=== PATIENT | male | born 1960 | race Caucasian/White ===

== ENCOUNTER 2023-11-27 09:49 | Observation (INO) ==
--- NOTE | 2023-10-16 08:52 | PAT Medication Instructions ---
Medication Instructions Date of Service October 16, 2023 Home Medications amlodipine 10 mg tablet 10 mg PO QPM metoprolol succinate 25 mg tablet,extended release 24 hr 25 mg PO QAM Take morning of surgery With a small sip of water, OTHERWISE NOTHING TO EAT OR DRINK AFTER MIDNIGHT: metoprolol succinate 25 mg tablet,extended release 24 hr 25 mg PO QAM Take evening before surgery amlodipine 10 mg tablet 10 mg PO QPM Other Notes If you have any questions please call us at [phone] or [phone] or [phone] or [phone]
--- NOTE | 2023-11-02 09:03 | Anesthesiology Consultation ---
Date of Service November 02, 2023 Assessment & Plan (1) Encounter for pre-operative examination: Chart Review Chart Review: Acceptable Risk for Surgery and Patient seen in Pre Admission Testing Pt currently scheduled as 23 hours observation. If surgeon decides to change patient to Same Day Joint, patient would be acceptable risk for TKA, pending patient is motivated, has good support and surgeon's office completes [facility] Program preop requirements. Per PAT appt on 11/02/23, no recent illness/disease exposures, illness related symptoms, or recent illness/disease positive tests. Will leave to surgeon's discretion if preop Covid testing needed Teaching & Discussion Pre-Anesthesia Teaching/Discussion Notes: Instructed NPO after midnight before surgery,except medications with 15 cc of water. Medication instructions provided according to the PAT guidelines. History Surgery Operation Date: 11/27/23 07:00 Proposed Procedures p Right Total Knee Arthroplasty - Lenin Moreno MD Height/Weight Height: 6 ft Weight: 104.8 kg Allergies Allergy/AdvReac Type Severity Reaction Status Date / Time No Known Allergies Allergy NONE Verified 10/15/23 14:04 Medications Home Medications Medication Instructions Recorded Confirmed Last Taken amlodipine 10 mg tablet 10 mg PO QPM 10/15/23 10/15/23 Unknown metoprolol succinate 25 mg 25 mg PO QAM 10/15/23 10/15/23 Unknown tablet,extended release 24 hr Past Medical History Medical History (Updated 11/02/23 @ 15:09 by Hina Ta PA-C) Elevated hemoglobin A1c Hx borderline blood sugar levels 2016 - monitored / dietary changes & weight loss. No problems with over last 5 yrs. Hgb A1C 5.2 on 11/02/23 High cholesterol History of anxiety History of COVID-19 (04/2023) Several times- most recent 04/2023 Mild residual rhinitis (minimal) HTN (hypertension) PVC's (premature ventricular contractions) Right knee DJD Exercise / Class Metabolic Activity II 4-5 Yardwork/Stairs/Walk up hill (one flight of stairs- no chest pain or SOB ) Past Surgical History Surgical History History of colonoscopy History of left knee surgery History of shoulder surgery right, biceps tendon. [place] teeth removed hx Past Anesthesia History No Hx of Anesthesia Complications and No Family Hx of Anesthesia Complications History of PONV No Hx of PONV and No Hx of Motion Sickness Social History Smoking Status: Current some day smoker Smoking cigarettes per day: occ cigar Do You Dip or Chew Tobacco: Yes (1 can per week/advised npo) Hx Alcohol Use: Yes Alcohol type: beer, wine and hard liquor alcohol intake frequency: a few times a week substance use type: does not use Review of Systems - Hx of snoring - no hx of sleep study Patient denies chest pain, shortness of breath, dyspnea on exertion, reflux, cough, wheezing, palpitations. No hx of seizures, stroke, [place]. No hx of blood clots or blood transfusions Physical Exam Vital Signs VITALS BP 141/82 P 51 TEMP 97.4 SP02 96% RESP 16 Constitutional no acute distress ENMT Mouth: no TMJ clicking Thyromental Distance: > or= 3.5 Finger Breadths (4.0) Mallampati Class: III Caps to molars Neck neck extension not limited Respiratory normal respiratory effort; no respiratory distress Auscultation: lungs clear to auscultation bilaterally; no wheezes Cardiovascular Rate/Rhythm: regular rate and regular rhythm Heart Sounds: no murmur Vessels: no carotid bruit Extra beats Musculoskeletal Spine: no pain with cervical ROM Extremities: extremities normal to inspection Psychiatric Orientation: alert Lab Results Anesthesia Preop Results Results Anesthesia Widget: WBC 3.24 K/ul (4.8-10.8) L 11/02/23 Hgb 15.3 g/dl (14.0-18.0) 11/02/23 Hct 44.6 % (42.0-52.0) 11/02/23 Plt 199 K/uL (130-400) 11/02/23 Na 137 mmol/L (136-145) 11/02/23 K 4.0 mmol/L (3.5-5.1) 11/02/23 Cl 105 mmol/L (98-107) 11/02/23 CO2 25 mmol/L (21-32) 11/02/23 BUN 22 mg/dl (6-23) 11/02/23 Creat 0.99 mg/dl (0.6-1.4) 11/02/23 Glucose Level 117 mg/dl (70-99(Fasting)) H 11/02/23 PT 11.1 Seconds (9.0-12.0) 11/02/23 PTT 29 Seconds (21-31) 11/02/23 INR 1.0 (0.9-1.1) 11/02/23 HA1c 5.2 % (4.5-5.6) 11/02/23 Blood Type A Positive 11/02/23 Antibody Screen NEGATIVE 11/02/23 Testing Electrocardiogram Date: 11/02/23 SR with occ PVCs at 67bpm Nonspecific intra ventricular conduction block Chest X-Ray Date: 11/02/23 FINDINGS: PA and lateral chest radiographs are obtained. No prior studies are available for comparison at the time of dictation. The heart appears mildly enlarged. The pulmonary vasculature is noncongested. The lungs and pleural spaces are clear. There is no pneumothorax. There are chronic/healed right-sided rib fractures. Arthritic change is seen in the shoulders. IMPRESSION: No active disease in the chest. Stress Test Date: 06/02/20 Type: exercise (ECHO) Resting EF: 55 to 60% Resting LV Function: normal No stress-induced chest pain. Negative EKG stress test for ischemia. No stress-induced arrhythmias. BP response to stress was normal. Functional capacity was average Normal stress test. 9 METS achieved. MPHR 101% Other Testing CT of the heart 10/10/2022 = Agatston calcium score is 15. This score suggests at least mild coronary plaque burden. Observed calcium score of 15 is at the 25th percentile for subjects of the same age, gender and race/ethnicity and suggest mild risk CAD.
--- NOTE | 2023-11-24 10:51 | History & Physical Report ---
Date of Service November 24, 2023 Assessment & Plan (1) Right knee DJD: 63-year-old gentleman with advanced right knee arthritis. He is failed conservative treatment. He is ready to have his knee replaced. Plan: When taken to the operating do right total knee replacement. The risk and benefit this procedure explained the patient include but not limited to DVT PE infection neurological and vascular bleeding palm pain limb range of motion sepsis fairly with symptoms incomplete relief of symptoms need for further surgery in future excetra. Patient understands and desires to proceed. Informed consent was obtained. As far as discharge plans he is planned to be discharged to home with his 's assistance. Home health. Will use aspirin for DVT prophylaxis. History of Present Illness Chief Complaint: . Right knee pain Primary Care Provider: Jatinder Caraballo MD . Patient is a 63-year-old active gentleman whose had a fairly long history of gradually progressive increasing right knee pain discomfort that is gotten worse over the past couple years. He has been through conservative treatment clued and medicines and injections. The injection helped him for couple weeks and that is about it. He is got global pain. He limps more as the day goes on. He developed a varus deformity to his knee. He like to have his knee replaced. Allergies Allergy/AdvReac Type Severity Reaction Status Date / Time No Known Allergies Allergy NONE Verified 10/15/23 14:04 Home Medications Medication Instructions Recorded Confirmed Type amlodipine 10 mg tablet 10 mg PO QPM 10/15/23 10/15/23 History metoprolol succinate 25 mg 25 mg PO QAM 10/15/23 10/15/23 History tablet,extended release 24 hr Wheeled Walker #1 ea 11/12/23 Rx Past Med/Surg History Problem List Encounter for pre-operative examination Right knee DJD Medical History History of COVID-19 (04/2023) Several times- most recent 04/2023 Mild residual rhinitis (minimal) High cholesterol History of anxiety Elevated hemoglobin A1c Hx borderline blood sugar levels 2015 - monitored / dietary changes & weight loss. No problems with over last 5 yrs. Hgb A1C 5.2 on 11/02/23 PVC's (premature ventricular contractions) Right knee DJD HTN (hypertension) Surgical History [place] teeth removed hx History of shoulder surgery right, biceps tendon. History of left knee surgery History of colonoscopy Social History Smoking Status: Current some day smoker Tobacco Type: Cigars and Smokeless Tobacco (Dip or Chew) Cigarettes Per Day: occ cigar; Do You Dip or Chew Tobacco: Yes (1 can per week/advised npo); Hx Alcohol Use: Yes Alcohol type: beer, wine and hard liquor Preferred Language: Thai Communication Ability: Effective Charge Out Clerk Required: No Beliefs That Will Affect Care: None Current Living Situation: Spouse Feels Safe at Home: Yes Assistive Devices: Other Review of Systems All systems reviewed & are unremarkable except as noted in HPI & below. Physical Exam . Physical examination reveals a pleasant middle-age male. Looks in good health. Examination the right knee reveals patient walks with a bit of a limp he is got varus alignment to his knee with a varus thrust. Small knee effusion. Range of motion about 10 to 210 degrees. Is got bony hypertrophy medially. Small knee effusion. No pain with hip motion. He is neurovascularly intact. Constitutional WD/WN, vitals as above Respiratory normal respiratory effort, lungs clear to auscultation Cardiovascular RRR, no murmur, no edema Gastrointestinal (Abdomen) normal bowel sounds, soft, nontender, no hepatosplenomegaly Results & Data Results & Data Laboratory Results . Diagnostic Findings . X-rays of right knee reviewed. Shows advanced right knee DJD. Is got complete loss of the medial joint space. Got osteophytes mostly in the medial compartment but some laterally as well. Discussed some chondrocalcinosis. PG Care Time/CCT Total # of Minutes Spent Total Time Spent with Patient: Total time spent is greater than 50% in coordination of care (as documented) at patient's floor/unit and/or counseling patient: Coding Level of Care Code None Diagnoses Right knee DJD M17.11
[~2023-11-27 09:49] MED LIST: MIDAZOLAM HCL 1 MG/ML 2ML VIAL ONE; ROPIVACAINE 0.5% 5 MG/ML 30 ML VIAL ONE; fentaNYL citrate PF 100 MCG/2 ML VIAL ONE
--- NOTE | 2023-11-27 09:58 | History & Physical Bridge Note ---
Date of Service November 27, 2023 History & Physical Bridge Note I have examined the patient, reviewed the History & Physical and in the interval since the performance of the History & Physical I have noted the following changes of clinical significance: no changes noted
[2023-11-27] MEDS: FAMOTIDINE 20 MG TAB PO SCH (10:19)
[2023-11-27] MEDS: CeleBREX 200 MG CAP PO SCH (10:19)
[2023-11-27] MEDS: ACETAMINOPHEN 500 MG TAB PO SCH ×2 (10:20→14:46)
[2023-11-27] MEDS: dexAMETHasone**PF** 10 MG/ML VIAL IV SCH (10:20)
[2023-11-27] MEDS: METOCLOPRAMIDE HCL 10 MG TABLET PO SCH (10:20)
[2023-11-27] MEDS: LR 500ML BOLUS, THEN 15ML/HR IV SCH (10:21)
[2023-11-27] MEDS: Scopolamine 1 MG TDSY TD SCH (10:21)
[2023-11-27] MEDS: LR 60ML/HR IV SCH (10:21)
[2023-11-27] MEDS ORDERED: ONDANSETRON INJ 2 MG/ML 2 ML VIAL IV PRN ×2 (10:57→14:28)
[2023-11-27] MEDS ORDERED: HYDROmorphone INJ 1 MG/ML SYRINGE IV PRN (10:57)
[2023-11-27] MEDS ORDERED: ePHEDrine sulfate 50 MG/ML AMP IV PRN (10:57)
[2023-11-27] MEDS ORDERED: KETOROLAC 30 MG/ML VIAL IV PRN (10:57)
[2023-11-27] MEDS ORDERED: ATROPINE SULFATE 0.1 MG/ML 10ML SYR IV PRN (10:57)
[2023-11-27] MEDS ORDERED: MIDAZOLAM HCL 1 MG/ML 2ML VIAL ONE (11:08)
[2023-11-27] MEDS: ceFAZolin 2000MG 2,000 MG/15 ML SYR IV SCH ×2 (11:28→19:35)
[2023-11-27] MEDS: ORTHO JOINT ANESTHETIC ONE (11:56)
[2023-11-27] MEDS ORDERED: PROPOFOL IV EMULSION 10 MG/ML 20 ML VIAL IV ONE (12:05)
[2023-11-27] MEDS ORDERED: PROPOFOL IV EMULSION 10 MG/ML 100 ML VIAL IV ONE (12:05)
[2023-11-27] MEDS ORDERED: ONDANSETRON INJ 2 MG/ML 2 ML VIAL ONE (12:05)
[2023-11-27] MEDS: ROPIV 0.5% 246mg, Ketorolac 30mg, EPINEPHrine 0.5mg in NSS INFIL SCH (12:24)
[2023-11-27] MEDS: TRANEXAMIC ACID 1,000 MG **IV Intra-op IV SCH (12:24)
--- NOTE | 2023-11-27 13:16 | Operative Report ---
PG Post Operative Report Pre & Post Diagnosis Operation Date: 11/27/23 12:30 Pre-Op Diagnosis: Right Knee Degenerative Joint Disease Post-Op Diagnosis: Right Knee Degenerative Joint Disease I identified the patient and participated in the time-out.: Yes Procedure Operation Date: 11/27/23 12:30 Actual Procedures p Right Total Knee Arthroplasty(Right) - Lenin Moreno MD Surgeon Lenin Moreno MD Science And Operations Officer Bebeto Roth PA-C Estimated Blood Loss 50 Findings Consistent with Post-Op Diagnosis Operative findings revealed severe advanced right knee DJD involving primarily the medial compartment. Extensive complete eburnation anteromedial femoral condyle medial tibial plateau. He had a fixed varus deformity to his knee. About a 10 to 15 degree flexion contracture. Moderate-sized joint effusion. Specimens Right knee sent for pathology. Anesthesia Type Spinal MAC Complications none Indications Patient is 63-year-old very active gentleman whose had a long history of gradual progressive increasing right knee pain discomfort deformity. He failed co nservative measures. X-rays show advanced right knee arthritis. He elected to proceed with surgical treatment. Description of Procedure Operative implants consist of: 1 Biomet Vanguard size 70 right posterior stabilized femoral component. 2. Biomet size 79 tibial tray. 3. 10 mm posterior stabilized polyethylene insert. 4. 31 x 8 all poly patella. The patient was taken the operating, identified, placed on the operating table in the supine position. All contact areas were appropriately padded. IV antibiotics tried by anesthesia team. A spinal anesthetic and adductor canal block had provided in the holding area. A right thigh tourniquet was then placed. The right lower extremity was then prepped and draped in usual sterile fashion. The right leg was elevated exsanguinated with use of an Esmarch and the tourniquet was placed at 300 mmHg. An anterior approach to the right knee was then performed to longitudinal incision centered over the patella. Sharp dissection was carried through subcutaneous tissue down the extensor mechanism. A medial parapatellar arthrotomy incision was made. Some subperiosteal dissection was carried out medially. The fat pad was resected from Neath patella tendon. Lateral patellofemoral ligament was released. The patella was subluxated laterally and the knee was flexed. The osteophytes taken on distal femur. The ACL and PCL were then released from distal femur and the tibia subluxated anteriorly. The external tibial alignment jig was then placed on the anterior face of the tibia and adjusted 14 mm medially. Proximal tibial cut was made remove about a millimeter bone from the most deficient aspect medial tibial plateau. Some osteophytes were taken off medially. The tibia sized to a size 79. Attention drawn the femur. The distal femur was entered with a sharp drill. Intramedullary canal was suction. A right 6 degree valgus cutting guide was placed but the distal femoral cutting block was pinned in place. Distal femoral cut was made to take an additional 3 mm of bone off distal femur. The femur was then sized to a size 70. The AP cutting block was pinned parallel to the epicondylar axis which was 3 degrees of external rotation. The anterior cut, anterior chamfer, posterior cut, posterior chamfer cuts were made. The box cutting guide was placed in the just slight lateral and the box cut was made. The knee was flexed. The remnants of the medial and lateral menisci were excised. The osteophytes taken off the posterior aspect of femur. A trial femoral component was placed. The tibial tray was pinned Lashae external rotation and the drill and stem punch were used to create defect in proximal tibia for the tibial tray. The knee was then trialed and the 10 mm insert fit most appropriately. I did try the 12 but it was just too tight in both flexion and extension. Attention drawn the patella. The patella was cleaned of all soft tissues. Patella thickness measured 23 mm in thickness was cut down to 14. Was sized to a size 31 patella. We did downsize this as that he had a bipartite patella which encompassed some of the lateral portion. The lug holes were drilled for 31 patella. The lateral osteophyte was removed. I did remove the accessory bipartite patella component. The knee was taken through range of motion patella tracked nicely with no thumbs test. Attention drawn to place the permanent components. All trial components were removed. Bone plug was placed in the distal femur limit blood loss. A double batch of [place] G cement was mixed. A Biomet Vanguard size 70 right posterior Byce femoral component, a size 79 tibial tray, a 10 mm posterior Byce polyethylene insert, and a 31 x 8 all poly patella then cemented in place. The knee was brought out into full extension till cement hardened. Final cement check was then performed. The pericapsular tissues were injected with total of 100 cc of Ortho mix. The patient did receive 1 g tranexamic acid. The tourniquet was then let down for final tourniquet time of 56 minutes. Hemostasis assured with electrocautery. Extensor Meclomen closed with combination 1 PDS suture #1 Vicryl suture in a [id number] fashion. Extensor Meclomen checked found to be intact the subcutaneous tissues then closed with 2 Dexon suture in buried interrupted fashion skin was closed skin ludmila. Leg was then cleaned and dried and a sterile dressing with Xeroform, 4 fours, sterile cast padding, [place] bandage were applied. The patient then transferred to the recovery room in stable condition. The patient tolerated the procedure well and there were no complications. Bebeto Roth, my physician assistant director of admissions, was present for the entire procedure. His assistance was essential and required for appropriate patient positioning, prepping and draping, surgical exposure, performing the technical details of the operation, placement the implants, closure of the wound, and placement of the sterile bandage. I attest to the content of the Intraoperative Record and any orders documented therein. Any exceptions are noted below.
--- NOTE | 2023-11-27 13:47 | XRay Report ---
XR knee RT 1 or 2V routine CLINICAL HISTORY: Surgical Post Op TECHNIQUE: 2 views of the right knee were obtained. Comparison: None available at the time of this dictation. FINDINGS: Patient is status post total knee arthroplasty with expected postsurgical changes including soft tiss ue swelling and subcutaneous emphysema. No periarticular lucency or hardware fracture is seen. IMPRESSION: Expected postoperative appearance status post placement of total knee arthroplasty. ACT 112: Negative or not required by law. Electronically signed by: Jovan Stover M.D. 11/27/2023 1:46 PM
[2023-11-27] MEDS ORDERED: NALOXONE HCL 0.4 MG/1 ML VIAL/CARP IV PRN (14:28)
[2023-11-27] MEDS ORDERED: METOCLOPRAMIDE HCL INJ 5 MG/ML 2 ML VIAL IV PRN (14:28)
[2023-11-27] MEDS ORDERED: bisacodyL 10 MG SUPP PR PRN (14:28)
[2023-11-27] MEDS ORDERED: ALUMINUM/MAGNESIUM SUSP 30 ML UDC PO PRN (14:28)
[2023-11-27] MEDS ORDERED: MAGNESIUM HYDROXIDE SUSP 30 ML UDC PO PRN (14:28)
[2023-11-27] MEDS: SODIUM CHLORIDE 0.9% 1,000 ML IV SCH (14:45)
--- NOTE | 2023-11-27 14:56 | Anesthesiology Progress Note ---
Date of Service November 27, 2023 Anesthesia Post Procedure Vital Signs Vital Signs: Temp Pulse Pulse Resp BP Pulse Ox O2 Del Method 11/27/23 14:28 36.5 C 52 L 18 115/60 95 Room Air 11/27/23 13:45 50 L 10 L 114/58 L 94 Room Air 11/27/23 13:35 36.3 C L 54 L 12 112/68 97 Oxymask 11/27/23 13:20 36.3 C L 51 L 21 118/81 96 Oxymask 11/27/23 13:10 36.3 C L 54 L 16 111/62 96 Oxymask 11/27/23 10:10 36.9 C 66 18 148/81 H 97 Room Air O2 Flow Rate 11/27/23 14:28 11/27/23 13:45 3 11/27/23 13:35 3 11/27/23 13:20 5 11/27/23 13:10 5 11/27/23 10:10 Transfer of Care Handoff Completed per policy Notes Mental Status: alert / awake / arousable Patient Amnestic to Procedure: Yes Nausea / Vomiting: adequately controlled Pain: adequately controlled Airway Patency, RR, SpO2: stable & adequate BP & HR: stable & adequate Hydration State: stable & adequate Neuraxial Anesthesia: was administered and sensory block is resolving Anesthetic Complications: no major complications apparent
[2023-11-27] MEDS: KETOROLAC 30 MG/ML VIAL IV SCH (14:58)
[2023-11-27] MEDS: Scopolamine CHECK PATCH PLACEMENT SCH (16:23)
[2023-11-27] MEDS: ASCORBIC ACID 500 MG TAB PO SCH (16:25)
[2023-11-27] MEDS: HYDROmorphone INJ 0.5 MG/0.5 ML SYR IV PRN (17:36)
[2023-11-27] MEDS: oxyCODONE HCL IR 5 MG TAB (IMMEDIATE RELEASE) PO PRN (18:36)
[2023-11-27] MEDS: TRANEXAMIC ACID / 0.7% NACL 1,000 MG/100 ML BAG IV SCH (19:36)
[2023-11-27] MEDS ORDERED: SENNA 8.6 MG TAB PO SCH (21:00)
[2023-11-27] MEDS: DOCUSATE SODIUM 100 MG CAP PO SCH (21:27)
[2023-11-27] MEDS: SENNA 8.6 MG TAB PO SCH (21:27)
[2023-11-27] MEDS: amLODIPine BESYLATE 5 MG TAB PO SCH (21:28)
[2023-11-27] MEDS: ASPIRIN 81 MG ECTAB PO SCH (21:28)
--- NOTE | 2023-11-28 07:08 | Orthopedic Progress Note ---
Date of Service November 28, 2023 Assessment & Plan (1) Status post total right knee replacement: Pain controlled. Continue current management. dvt prophylaxis: mele's, scds, aspirin PT/OT wbat, total knee protocol d/c planning: home with home health today if he does okay with PT. Will discuss with Dr Josh Mejia . 63 year old patient POD #1 from right tka. Doing okay. Pain controlled at rest. Says he had "excruciating" pain when up and walking. No chest pain or shortness of breath. No other complaints. Review of Systems All systems reviewed & are unremarkable except as noted in HPI & below. Physical Exam .alert and oriented. NAD. VSS, has been bradycardic. Right leg: dressing clean, dry, intact. Able to do straight leg raise with some pain and difficulty. Able to dorsiflex and plantarflex. NVI Results & Data Results & Data Laboratory Results . Diagnostic Findings . PG Care Time/CCT Total # of Minutes Spent Total Time Spent with Patient: Total time spent is greater than 50% in coordination of care (as documented) at patient's floor/unit and/or counseling patient: Coding Level of Care Code 03352 Post Operative Follow-Up Diagnoses Status post total right knee replacement Z96.651
[2023-11-28] MEDS: TAMSULOSIN HCL 0.4 MG CAP PO SCH (07:35)
[2023-11-28] MEDS: METOPROLOL SUCC 25MG EXT REL TAB PO SCH (07:35)
[2023-11-28] MEDS: dexAMETHasone 10 MG in SYRINGE 0 ML IV SCH (07:35)
[2023-11-28] MEDS: MULTIVITAMIN TAB PO SCH (07:36)
== END 2023-11-28 11:23 | disposition home health service (06) ==
LOC: 3E 09:49 → ASU 09:49